=== PATIENT | female | born 1955 | race Caucasian/White ===

== ENCOUNTER 2019-06-11 22:20 | Inpatient (IN) | payer OTHER ==
[~2019-06-11] VITALS: Ht 152.4 cm; Wt 71.8 kg
[~2019-06-11 22:20] MED LIST: ATARAX,VISTARIL50 MG PO; B12,B-12,B 12500 MC1 PO; CIPRO500 MG PO; FLAGYL500 MG PO; LEVOTHYROXINE50 MCG PO; MEDROL DOSEPAK4 MG PO
[2019-06-11 22:54] LABS: BASO # 0.1 10*3/uL (0.0-0.1); BASO % 0.5 % (0.0-1.0); EOS # 0.1 10*3/uL (0.0-0.4); HEMATOCRIT 41.2 % (37.0-47.0); LYMPH # 1.5 10*3/uL (1.3-4.4); LYMPH % 16.1 % (27.0-41.0); MEAN CORPUSCULAR HGB CONC 31.6 g/dl (33.0-37.0); MONO # 0.8 10*3/uL (0.1-1.0); MONO % 8.8 % (3.0-9.0); NEUT # 6.8 10*3/uL (2.3-7.9); NEUT % 73.1 % (47.0-73.0); PLATELET COUNT AUTOMATED 277 10*3/uL (130-400); RED BLOOD COUNT 4.48 10*6/uL (4.10-5.10); RED CELL DISTRI WIDTH 14.1 % (0-14.5); WHITE BLOOD COUNT 9.3 10*3/uL (4.8-10.8)
[2019-06-11] MEDS ORDERED: SENNA PLUS 8.61 EACH PO (22:55)
[2019-06-11] MEDS ORDERED: SYNTHROID25 MCG PO (22:56)
[2019-06-11] MEDS ORDERED: HYDROXYZINE HCL25 MG PO (22:57)
[2019-06-11] MEDS ORDERED: PROMETHAZINE HC25 M1 PO (22:58)
[2019-06-11] MEDS ORDERED: TUSSIN DM CLEA118 ML PO (22:59)
[2019-06-11] MEDS ORDERED: TOPROL XL50 M1 PO (22:59)
[2019-06-11] MEDS ORDERED: OMEPRAZOLE MAGN20 M1 PO (23:00)
[2019-06-11] MEDS ORDERED: WELLBUTRIN SR200 MG PO (23:00)
[2019-06-11] MEDS ORDERED: VITAMIN D33000 UNIT PO (23:01)
[2019-06-11 23:09] LABS: ACT PARTIAL THROMBO TIME 26.8 SECONDS (20.0-32.1); INTERNATIONAL NORM RATIO 0.9 (2.0-3.5)
[2019-06-11 23:14] LABS: ALBUMIN 3.3 gm/dl (3.1-4.5); BUN 8 mg/dl (7-24); CHLORIDE 108 mmol/L (98-107); POTASSIUM 3.9 mmol/L (3.5-5.1); SGOT/AST 14 IU/L (3-35); SGPT/ALT 20 U/L (12-78); SODIUM 140 mmol/L (136-145); TOTAL PROTEIN 6.9 gm/dL (6.4-8.2)
[2019-06-11 23:16] LABS: ALKALINE PHOSPHATASE 81 U/L (45-117)
[2019-06-11 23:18] LABS: TROPONIN I < 0.015 ng/ml (<0.045)
[2019-06-11 23:42] LABS: BILIRUBIN NEGATIVE (NEGATIVE); BLOOD 2+ (NEGATIVE); CLARITY SL CLOUDY (CLEAR); COLOR YELLOW (YELLOW); GLUCOSE NEGATIVE (NEGATIVE); KETONE NEGATIVE (NEGATIVE); LEUKO ESTERASE NEGATIVE (NEGATIVE); NITRITE NEGATIVE (NEGATIVE); UROBILINOGEN 0.2 E.U./dl (0.2-1.0)
[2019-06-12 03:19] VITALS: BP 125/59
[2019-06-12 08:00] VITALS: BP 143/75
[2019-06-12 12:00] VITALS: BP 137/65
[2019-06-12 16:00] VITALS: BP 117/66; BP 144/77
[2019-06-12] MEDS ORDERED: PROAIR HFA8.5 GM INH (17:48)
[2019-06-12 20:00] VITALS: BP 115/58
[2019-06-13] VITALS: BP 116/59
[2019-06-13 06:19] LABS: BASO % 0.7 % (0.0-1.0); EOS % 0.9 % (1.0-4.0); HEMATOCRIT 41.4 % (37.0-47.0); HEMOGLOBIN 12.8 g/dl (12.0-16.0); LYMPH # 1.2 10*3/uL (1.3-4.4); LYMPH % 26.9 % (27.0-41.0); MEAN CORPUSCULAR HGB 28.1 pg (27.0-31.0); MEAN CORPUSCULAR HGB CONC 30.9 g/dl (33.0-37.0); MEAN PLATELET VOLUME 9.8 fl (9.6-12.3); MONO # 0.7 10*3/uL (0.1-1.0); MONO % 15.2 % (3.0-9.0); NEUT # 2.5 10*3/uL (2.3-7.9); NEUT % 55.9 % (47.0-73.0); PLATELET COUNT AUTOMATED 231 10*3/uL (130-400); RED BLOOD COUNT 4.55 10*6/uL (4.10-5.10); RED CELL DISTRI WIDTH 14.4 % (0-14.5); WHITE BLOOD COUNT 4.5 10*3/uL (4.8-10.8)
[2019-06-13 06:33] LABS: ALBUMIN 3.1 gm/dl (3.1-4.5); ALKALINE PHOSPHATASE 65 U/L (45-117); BUN 5 mg/dl (7-24); CHLORIDE 106 mmol/L (98-107); CREATININE 0.57 mg/dL (0.55-1.02); PHOSPHOROUS 2.9 mg/dL (2.5-4.9); POTASSIUM 3.3 mmol/L (3.5-5.1); SGOT/AST 15 IU/L (3-35); SGPT/ALT 15 U/L (12-78); SODIUM 140 mmol/L (136-145); TOTAL PROTEIN 6.3 gm/dL (6.4-8.2)
[2019-06-13 08:00] VITALS: BP 107/53
== END 2019-06-13 14:15 | disposition home or self-care (01) | DRG 191 ==
LOC: ED 22:20 → 5E 06-12 02:08 → EDHOLD 06-12 02:08 → 5E 06-12 02:40
PROVIDERS: Emergency Medicine; Student in an Organized Health Care Education/Training Program; ADMIT Family Medicine
DX: J44.1 Chronic obstructive pulmonary disease with (acute) exacerbation (principal); E44.0 Moderate protein-calorie malnutrition; J06.9 Acute upper respiratory infection, unspecified; E53.8 Deficiency of other specified B group vitamins; R09.02 Hypoxemia; R68.89 Other general symptoms and signs; R73.9 Hyperglycemia, unspecified; E87.8 Other disorders of electrolyte and fluid balance, not elsewhere classified; E03.9 Hypothyroidism, unspecified; F12.90 Cannabis use, unspecified, uncomplicated; F17.210 Nicotine dependence, cigarettes, uncomplicated; Z88.0 Allergy status to penicillin; Z68.31 Body mass index [BMI] 31.0-31.9, adult; Z79.899 Other long term (current) drug therapy; Z90.710 Acquired absence of both cervix and uterus; Z90.49 Acquired absence of other specified parts of digestive tract; Z80.0 Family history of malignant neoplasm of digestive organs